=== PATIENT | male | born 1990 | race African-American/Black ===

== ENCOUNTER 2018-12-17 03:12 | Emergency (ER) | payer SELFPAY ==
[~2018-12-17] VITALS: Ht 188 cm; Wt 113.4 kg
[2018-12-17] MEDS ORDERED: IBUPROFEN 600 MG TABLET PO ONE ×2 (03:32→04:00)
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
--- NOTE | 2018-12-17 03:58 | NUR ---
XRAY AT BEDSIDE
--- NOTE | 2018-12-17 05:07 | NUR ---
Patient discharged to home in stable condition. Written and verbal after care instructions given. Patient verbalizes understanding of instruction. Pt ambulatory with a steady gait
[2018-12-17 05:08] VITALS: BP 147/67
== END 2018-12-17 05:09 | disposition home or self-care (01) ==
LOC: ER 03:15
DX: S20.219A Contusion of unspecified front wall of thorax, initial encounter (principal); V49.49XA Driver injured in collision with other motor vehicles in traffic accident, initial encounter; Y93.89 Activity, other specified; Y92.413 State road as the place of occurrence of the external cause; Y99.8 Other external cause status
CPT/HCPCS: 71046